=== PATIENT | female | born 1955 | race Caucasian/White ===

== ENCOUNTER 2018-05-30 16:46 | Inpatient (IN) | payer OTHER, SELFPAY ==
[2018-05-30 16:47] VITALS: BP 125/76; PULSE 99; RESP 16; TEMP 36.8; O2SAT 93; BMI 31.6
[2018-05-30] MEDS: 0.9% Normal Saline 1,000 ML 1000 ML IV (17:30)
[2018-05-30] MEDS: Ondansetron 4 MG/2 ML Vial IV (17:30)
--- NOTE | 2018-05-30 17:55 | ED.DCSUM_ITS ---
- ER Visit Summary Date of Service: 05/30/18 Chief Complaint: Abdominal pain, nausea, and diarrhea. 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 She reports that 4 days ago she became very nauseated and vomited approximately 5 times. No blood or emesis. She has not vomited since then. However, she remains nauseated. She reports that she is having diarrhea once in a while. Last was approximate 11:00 today. There is been no blood in her stools or black tarry stools. She reports that she has left-sided abdominal pain began 3 days ago. Some intermittent pain last seconds at a time and she describes this as sharp. Is 10 out of 10 at worst and she is pain-free currently. Is worsened by nothing and relieved by nothing. Patient complains of frequent urination, but no dysuria. States she has had vaginal discharge for the past 1-1/2 years that is worsened over the past 2 days. Is light brown in color and is malodorous. She has vaginal bleeding with wiping sometimes. Patient is status post appendectomy, cholecystectomy, and hysterectomy. Physical Examination: Vitals: Stable. Afebrile. General: Well-nourished and well-developed. Head: Normocephalic atraumatic. Neck: Supple, no lymphadenopathy. No JVD. Nontender. Cardiovascular: Regular rate and rhythm. No murmurs. Respiratory: No respiratory distress. Clear to auscultation bilaterally. Abdominal: Soft, moderate left upper quadrant tenderness and mild left lower quadrant and suprapubic tenderness to palpation, nondistended, normal bowel sounds. No guarding, rebound, or peritoneal signs. Pelvic: Refused. Back: Nontender. Extremities: Nontender, no edema. Skin: Normal color, no rash. Neurologic: Alert and oriented ?3. Cranial nerves II through XII are intact. Normal strength and sensation. Psych: Normal affect. Test Results: CBC is remarkable for monocytes of 11. Chem-7 is more for potassium 3.3 and BUN of 20. LFTs marked for globulin 4.4. Lipase is normal. UA shows blood, greater than 100 white blood cells, 25-50 red blood cells, and 3 + bacteria. Clinical Impression(s) from Imaging Studies Abdomen/Pelvis CT 05/30/18 17:11 IMPRESSION: Inflammatory process in the pelvis that appears to be related to the rectosigmoid and may be associated with 2 small abscesses on the right. See specifics above. Electronically Signed: Javed Chavez MD at 19:39 EDT , Service support , Emergency Department Course and Treatment: Patient refused pain medications. She was treated with Zofran IV and is resting comfortably. The patient's urine returned she was given a dose of Rocephin IV. After discussion with Dr. Hamilton she was given Flagyl and Cipro IV. Treatment Plan: Patient was discussed with Dr. Steve Dodd. She will be admitted to the hospital for IV antibiotics and further evaluation. Disposition: Admitted in stable condition. Impression: 1. Small bowel obstruction. 2. Pelvic abscesses. 3. Rectosigmoid wall thickening. This note was generated with [employer] dictation software. It may contain incorrect words, spelling, and punctuation that were not noted in review of the chart prior to signing ED Disposition - Plan for ED Patient: Disposition: Acute Care [facility] Chief Complaint: Abd Pain
[2018-05-30 18:05] LABS: Absolute Lymphocyte Count 2.17 X10^3/ul (0.83-4.51); Absolute Neutrophil Count 4.2 X10^3/uL (2.0-7.7); Basophil# 0.02 X10^3/uL; Basophil% 0.3 % (0-1); Eosinophil# 0.05 X10^3/uL; Eosinophils% 0.7 % (0-5); Hematocrit 38.9 % (37-47); Hemoglobin 12.4 g/dl (12.0-15.0); Lymphocyte # 2.17 X10^3/ul (4.0); Lymphocyte % 29.8 % (19-41); Mean Corp Hgb Conc 31.9 g/gl (32-36); Mean Corpuscular Hgb 30.2 pg (27.0-32.0); Mean Corpuscular Volume 94.9 fL (81-99); Mean Platelet Vol. 11.4 fl (6.2-12.0); Monocyte# 0.82 X10^3/uL; Monocyte% 11.3 % (0-10); Neutrophil # 4.21 X10^3/uL (2.7-7.7); Neutrophil % 57.9 % (47-70); Platelet Count 307 K/mm3 (150-450); RBC Distribution Width CV 13.6 % (11.6-14.6); White Blood Count 7.3 K/mm3 (4.4-11.0)
[2018-05-30 18:08] LABS: POSITIVE COUNT NO; POSITIVE DIFFERENTIAL NO; POSITIVE MORPHOLOGY NO
[2018-05-30 18:09] LABS: Mucous, Urine 0 SEEN /hpf (<or=2+)
[2018-05-30 18:23] LABS: AST(SGOT) 19 U/L (15-37); Alanine Aminotransfer ALT/SGPT 15 U/L (13-56); Albumin, Serum 3.3 g/dL (3.2-5.0); Alkaline Phosphatase 91 U/L (45-117); Anion Gap 9 (5-15); BUN 20 mg/dL (7-18); BUN/Creat Ratio 26.9 RATIO (10-20); Bilirubin, Direct 0.14 mg/dL (0.00-0.30); Calcium,Total 9.1 mg/dL (8.5-10.1); Chloride 103 mmol/L (98-107); Creatinine, Serum 0.74 mg/dL (0.55-1.02); EST Glomerular Filtration Rate 84 mL/min (>60); Est Glom Filt Rate - Afr Amer 102 mL/min (>60); Estimated Creatinine Clearance 75.68 ml/min; Globulin 4.4 g/dL (2.2-4.2); Glucose 100 mg/dL (74-106); Lipase 48 U/L (73-393); Potassium 3.3 mmol/L (3.5-5.1); Protein, Total 7.7 g/dL (6.4-8.2); Sodium Level 139 mmol/L (136-145)
[2018-05-30 18:24] LABS: Color, Urine Straw (Yellow); Glucose, Dipstick Normal (Normal); Ketone-Dipstick 15 mg/dl (Negative); Leukocyte Esterase-Dipstick 500 /ul (Negative); Nitrite-Dipstick Negative (Negative); Occult Blood-Urine 250 /ul (Negative); Protein-Dipstick 30 mg/dl (Negative); Specific Gravity, Urine 1.005 (1.002-1.030); Urine Bilirubin Dipstick Negative (Negative); Urine Clarity Cloudy (Clear); Urine Urobilinogen Normal (Normal); Urine pH 6.5 (5.0 - 8.0)
[2018-05-30 18:35] LABS: Bacteria 3+ /hpf (None Seen); Red Blood Cells-Urine 25-50 SEEN /hpf (0-5); Squamous Epithelial Cells - UA 0-5 SEEN /hpf (5-10); White Blood Cells >100 SEEN /hpf (0-5)
[2018-05-30] MEDS: Ceftriaxone 1 GM/50 ML BAG IV (19:34)
[2018-05-30 19:37] VITALS: BP 139/79; PULSE 85; RESP 17; O2SAT 95
[2018-05-30] MEDS: Ciprofloxacin 400 MG/200 ML BAG 200 MG IV (20:49)
--- NOTE | 2018-05-30 20:58 | PCM.HP.STD ---
Problem List (1) SBO (small bowel obstruction) Status: Acute (2) Abdominal pain Status: Acute Qualifiers: Abdominal location: generalized Qualified Code(s): R10.84 - Generalized abdominal pain (3) Pelvic abscess Status: Acute History of Present Illness Date of Admission: 05/30/18 Chief Complaint: abdominal pain The patient is a 62 year old female patient with no primary care in the past 15 years presents to the ER with abdominal pain. The pain has been present and getting worse since Wednesday. She has little or no appetite but does not like to seek medical care. The pain is now significant enough for her her to come in. She has nausea as well. The patient complaints of chronic vaginal discharge and consents to having a director of assessment consult but is refusing pelvic exam in the ER. CT scan reveals an inflammatory response in the abdomen and two distinct abscesses along with ileus and small bowel obstruction. The patient is a smoker but does not want a NicoDerm patch . She will be admitted for further workup. Past Medical History Allergies Penicillins Allergy (Verified 05/30/18 16:49) BLISTERS IN MOUTH Home Medications: Ambulatory Orders Medication Instructions Recorded Ibuprofen 400 - 600 mg PO PRN PRN 05/30/18 Smoking Status: Current every day smoker - *Family History Maternal History Items: No pertinent history Review of Systems Constitutional: Denies: Chills, Fever, Weight Change HEENT: Denies: Head Aches, Sinus Congestion, Sinus Drainage Cardiovascular: Denies: Chest Pain, Palpitations Respiratory: Denies: Cough, Shortness of breath at rest, Sputum production Gastrointestinal: Reports: Abdominal Pain, Nausea. Denies: Vomiting Genitourinary: Denies: Dysuria Gynecological: Reports: Vaginal discharge Musculoskeletal: Denies: Joint Pain, Joint Tenderness Skin: Denies: Rash, Wounds Neurological: Denies: Numbness, Tingling, Focal weakness Psychiatric: Denies: Anxiety, Depression, Homicidal Ideations, Suicidal Ideations Hematologic/ Lymphatic: Denies: Easy Bruising, Easy Bleeding VTE Information - Inpt Only VTE Present on Admission: No VTE Mechan Device Prophylaxis: None VTE Pharm Prophylaxis ordered?: Yes Patient Problems: Active and Suspected Problems SBO (small bowel obstruction) (Acute) Abdominal pain (Acute) Pelvic abscess (Acute) - Physical Exam General: Alert, Oriented x3, Cooperative HEENT: Atraumatic, Normocephalic Neck: Supple Lungs: Clear to auscultation, Normal air movement, No rhonchi, No wheeze, No rales Cardiovascular: Regular rate, Regular Rhythm, Normal S1, Normal S2, No murmurs Abdomen: Soft, Hypoactive Bowel Sounds, Tender Extremities: No edema, Capillary Refill Less than 3 Seconds Skin: No rashes Musculoskeletal: No Tenderness to Palpation of Joints or Extremities Neurological: Neuro grossly intact Psych/Mental Status: Normal Affect, Appropriate Vital Signs Temp Pulse Resp BP Pulse Ox 98.2 F 85 17 139/79 H 95 05/30/18 16:47 05/30/18 19:37 05/30/18 19:37 05/30/18 19:37 05/30/18 19:37 Oxygen Delivery Method Room Air Weight: 196 lb 3.382 oz Body Mass Index (BMI) 31.6 Laboratory Tests Past 24 Hrs 05/30/18 05/30/18 05/30/18 17:25 17:25 17:55 WBC 7.3 RBC 4.10 L Hgb 12.4 Hct 38.9 MCV 94.9 MCH 30.2 MCHC 31.9 L RDW 13.6 RDW Differential 47.0 H Plt Count 307 MPV 11.4 Immature Gran % (Auto) 0.000 Neut % (Auto) 57.9 Lymph % (Auto) 29.8 [place] % (Auto) 11.3 H Eos % (Auto) 0.7 Baso % (Auto) 0.3 Absolute Neuts (auto) 4.2 Absolute Lymphs (auto) 2.17 Total Counted Not Reportable Sodium 139 Potassium 3.3 L Chloride 103 Carbon Dioxide 27.0 Anion Gap 9 BUN 20 H Creatinine 0.74 Estim Creat Clear Calc 75.68 Est GFR (MDRD) Af Amer 102 Est GFR (MDRD) Non-Af 84 BUN/Creatinine Ratio 26.9 H Glucose 100 Calcium 9.1 Total Bilirubin 0.40 Direct Bilirubin 0.14 AST 19 ALT 15 Alkaline Phosphatase 91 Total Protein 7.7 Albumin 3.3 Globulin 4.4 H Lipase 48 L Urine Color Straw Urine Clarity Cloudy Urine pH 6.5 Ur Specific [place] 1.005 Urine Protein 30 H Urine Glucose (UA) Normal Urine Ketones 15 H Urine Occult Blood 250 H Urine Nitrite Negative Urine Bilirubin Negative Urine Urobilinogen Normal Ur Leukocyte Esterase 500 H Urine RBC 25-50 SEEN Urine WBC >100 SEEN Ur Squamous Epith Cells 0-5 SEEN Urine Bacteria 3+ Urine Mucus 0 SEEN Assessment/Plan All Active Problems SBO (small bowel obstruction) (Acute) Abdominal pain (Acute) Pelvic abscess (Acute) Plan - admit to general medical floor - consult Dr Hamilton for general surgery management of SBO - consult Dr Lim for management of vaginal discharge and does this related to current inflammatory process - CBC, BMP in am - continue ciprofloxacin and flagyl - morphine 2-4mg IV q 2hrs prn - zofran 4mg IV q6hrs prn - NPO and continue D5 1/2NS with 20meq KCl at 100cc/hr Code Visit Inpatient E&M: 86116 Init Hosp L3
[2018-05-30 22:09] VITALS: RESP 16; O2SAT 98
[2018-05-30 22:50] VITALS: BP 135/76; PULSE 83; RESP 16; TEMP 36.8; O2SAT 95
[2018-05-30 22:51] VITALS: BMI 31.9
[2018-05-30 22:54] VITALS: BMI 32.0
[2018-05-31 05:08] VITALS: BP 128/64; PULSE 82; RESP 16; TEMP 37; O2SAT 93
[2018-05-31 07:05] LABS: Absolute Lymphocyte Count 2.02 X10^3/ul (0.83-4.51); Absolute Neutrophil Count 4.1 X10^3/uL (2.0-7.7); Basophil# 0.01 X10^3/uL; Basophil% 0.1 % (0-1); Eosinophil# 0.08 X10^3/uL; Eosinophils% 1.1 % (0-5); Hematocrit 34.4 % (37-47); Lymphocyte # 2.02 X10^3/ul (4.0); Lymphocyte % 28.1 % (19-41); Mean Corpuscular Hgb 30.4 pg (27.0-32.0); Mean Platelet Vol. 10.8 fl (6.2-12.0); Monocyte# 0.96 X10^3/uL; Monocyte% 13.4 % (0-10); Neutrophil % 57.2 % (47-70); Platelet Count 263 K/mm3 (150-450); RBC Distribution Width CV 13.5 % (11.6-14.6); RBC Distribution Width SD 46.9 fl (35.1-43.9); Red Blood Count 3.62 M/mm3 (4.2-5.4); White Blood Count 7.2 K/mm3 (4.4-11.0)
[2018-05-31 07:07] LABS: POSITIVE COUNT NO; POSITIVE DIFFERENTIAL NO; POSITIVE MORPHOLOGY NO
[2018-05-31 07:36] LABS: Anion Gap 10 (5-15); BUN 12 mg/dL (7-18); BUN/Creat Ratio 21.2 RATIO (10-20); Calcium,Total 8.2 mg/dL (8.5-10.1); Chloride 108 mmol/L (98-107); Creatinine, Serum 0.57 mg/dL (0.55-1.02); EST Glomerular Filtration Rate 116 mL/min (>60); Est Glom Filt Rate - Afr Amer 140 mL/min (>60); Estimated Creatinine Clearance 98.26 ml/min; Glucose 99 mg/dL (74-106); Potassium 3.3 mmol/L (3.5-5.1); Sodium Level 144 mmol/L (136-145)
--- NOTE | 2018-05-31 07:41 | PCM.CONS.GEN ---
Reason for Consult Date of Consultation: 05/31/18 Reason for Consultation: Small bowel obstruction versus ileus History of Present Illness: The patient is a 62 year old F presented to the ER due to lower abdominal pain last night. Patient states that this often began on when she had some vomiting night and then she has had nausea since then. She states she has not 8 food since Wednesday but has been able to drink water. On Wednesday she started having lower abdominal pain which would come and go only last for seconds she rated rated the pain a 10/10 she also would have diarrhea almost nightly with this. Currently she states the pain still comes and goes but is even shorter in time and is only a 7/10. Patient states she did have diarrhea last night which was green in color previously was brown she also had flatus. Patient states that in April she had the vomiting and diarrhea for about 2 weeks no recent travel history or any sick contacts. Patient also complains of vaginal discharge for greater than a year she describes as malodorous light brown currently states that the green. Patient denies ever having a colonoscopy or any previous history of diverticulitis that she is aware of she denies any fevers or chills. Patient has had multiple previous surgeries hysterectomy and appendectomy about 24 years ago then laparoscopic cholecystectomy, wisdom teeth, left foot surgery. Past Medical History Allergies Penicillins Allergy (Verified 05/30/18 16:49) BLISTERS IN MOUTH Home Medications: Ambulatory Orders Medication Instructions Recorded Ibuprofen 400 - 600 mg PO PRN PRN 05/30/18 Surgical History: appendectomy, cholecystectomy, hysterectomy, - - [place] teeth, left foot surgery Psychiatric History: No pertinent psych hx [employer]ER History: - - Patient had a hysterectomy 24 years ago reports vaginal discharge for greater than a year Lives: Spouse/ Significant Other Smoking Status: Current every day smoker - *Family History Maternal History Items: No pertinent history Review of Systems Constitutional: Reports: Anorexia. Denies: Chills, Fever Eyes: Denies: Blurred vision HEENT: Denies: Difficulty Swallowing Cardiovascular: Denies: Chest Pain Respiratory: Denies: Shortness of breath at rest Gastrointestinal: Reports: Abdominal Pain, Diarrhea, Nausea. Denies: Vomiting Skin: Denies: Rash Patient Problems: Active and Suspected Problems SBO (small bowel obstruction) (Acute) Abdominal pain (Acute) Pelvic abscess (Acute) - Physical Exam General: Alert, Oriented x3, Cooperative, No apparent distress HEENT: Atraumatic, Normocephalic Lungs: Normal air movement Cardiovascular: Regular rate Abdomen: Soft, Non-Distended, Tender - Mild diffusely in greater in the lower abdomen bilaterally, no rebound or peritoneal signs Extremities: No clubbing, No cyanosis, No edema Skin: No rashes Neurological: Cranial nerves II-XII grossly intact Psych/Mental Status: Normal Affect Vital Signs Temp Pulse Resp BP Pulse Ox 98.6 F 82 16 128/64 H 93 05/31/18 05:08 05/31/18 05:08 05/31/18 05:08 05/31/18 05:08 05/31/18 05:08 Oxygen Delivery Method Room Air Weight: 198 lb 3.129 oz Body Mass Index (BMI) 31.9 Intake and Output for Last 24 Hours 05/29/18 05/30/18 05/31/18 23:59 23:59 23:59 Intake Total 934 / 934 Balance 934 / 934 Laboratory Tests Past 24 Hrs 05/31/18 05/31/18 06:45 06:45 WBC 7.2 RBC 3.62 L Hgb 11.0 L Hct 34.4 L MCV 95.0 MCH 30.4 MCHC 32.0 RDW 13.5 RDW Differential 46.9 H Plt Count 263 MPV 10.8 Immature Gran % (Auto) 0.100 Neut % (Auto) 57.2 Lymph % (Auto) 28.1 [place] % (Auto) 13.4 H Eos % (Auto) 1.1 Baso % (Auto) 0.1 Absolute Neuts (auto) 4.1 Absolute Lymphs (auto) 2.02 Total Counted Not Reportable Sodium 144 Potassium 3.3 L Chloride 108 H Carbon Dioxide 26.0 Anion Gap 10 BUN 12 Creatinine 0.57 Estim Creat Clear Calc 98.26 Est GFR (MDRD) Af Amer 140 Est GFR (MDRD) Non-Af 116 BUN/Creatinine Ratio 21.2 H Glucose 99 Calcium 8.2 L Assessment/Plan All Active Problems SBO (small bowel obstruction) (Acute) Abdominal pain (Acute) Pelvic abscess (Acute) 62-year-old female with ileus, UTI, diarrhea, vaginal discharge questionable fistula, pelvic abscess on CT 1. Ileus: Patient is passing gas and having diarrhea this is not consistent with small bowel obstruction may be due to an ileus. Her urine was positive for UTI await culture. Will also check stool studies. Continue n.p.o. and IV antibiotics 2. vaginal discharge--C[employer] MILLER has been consulted. Patient's pantiliner discharge could be consistent with fistula. Plan to review the CT with our radiologist. 3. Pelvic abscesses-will reviewed the CT with the radiologist these possible abscesses do not appear to be next to the colon either the cecum or the sigmoid on my read and also do not see any obvious diverticulitis of the colon. ADDENDUM: CT pelvis with Gastrografin was done, which shows some thickening of the rectal sigmoid colon, previous abscesses with air-fluid level seen in another larger abscess called on report---I believe this is actually small bowel not an abscess in the anterior pelvis on top of the bladder. Patient does have stool like drainage from her vaginal cuff on her panty liner. And her urinary culture does show mixed gram-positive and negative organisms still pending, CT also shows a thickened bladder wall. 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 Sloan. Becca Hamilton M.D. Pager: [phone] [facility] [address] [place] [address], [address] [place] [address] Office: [phone]
[2018-05-31 08:15] VITALS: BP 139/79; PULSE 82; RESP 16; TEMP 37; O2SAT 95
[2018-05-31] MEDS: Ciprofloxacin 400 MG/200 ML BAG 200 MG IV ×2 (09:45→22:08)
[2018-05-31] MEDS: 0.9% NaCl Peripheral Flush Adult/Peds IV ×2 (09:45→20:51)
--- NOTE | 2018-05-31 12:02 | PCM.PN.HOSP ---
Patient Problems: Active and Suspected Problems SBO (small bowel obstruction) (Acute) Abdominal pain (Acute) Pelvic abscess (Acute) Subjective: Patient seen and examined. She was sitting comfortably in her chair and had no complaints. She denied any fever or chills, any cough or chest pain, any shortness of breath, any diarrhea or vomiting. She did admit to having a profuse offensive greenish vaginal discharge has been going on for quite a long time. She states discharge started out initially brownish but had become yellowish. She still had the lower abdominal pain which had brought her in initially. Review of systems is otherwise negative. Surgery and gynecology have been consulted. Vitals reviewed. Vitals/I&O's: Vital Signs Temp Pulse Resp BP Pulse Ox 98.6 F 82 16 139/79 H 95 05/31/18 08:15 05/31/18 08:15 05/31/18 08:15 05/31/18 08:15 05/31/18 08:15 Oxygen Delivery Method Room Air Weight: 198 lb 3.129 oz Body Mass Index (BMI) 31.9 Intake and Output for Last 24 Hours 05/29/18 05/30/18 05/31/18 23:59 23:59 23:59 Intake Total 934 / 934 Balance 934 / 934 General: Alert, Oriented x3, Cooperative, No apparent distress HEENT: Atraumatic, PERRLA, EOMI, Normocephalic Oral: Moist Mucosa Neck: Supple, No JVD, Negative Carotid Bruits Lungs: Clear to auscultation, Normal air movement Cardiovascular: Regular rate, Regular Rhythm, Normal S1, Normal S2, No murmurs Abdomen: Bowel Sounds Present, Soft, Non-Distended, No Hepato-splenomegaly, - - mild suprapubic tenderness Extremities: No clubbing, No cyanosis, No edema, Capillary Refill Less than 3 Seconds Skin: No rashes, No breakdown Musculoskeletal: No Tenderness to Palpation of Joints or Extremities, No Muscle Wasting Lymphatic: No Cervical, Supraclavicular, or Inguinal Adenopathy Neurological: Cranial nerves II-XII grossly intact Psych/Mental Status: Normal Affect, Appropriate, Alert and oriented to time, place, person, mood and affect Laboratory Results 05/31/18 06:45: Sodium 144, Potassium 3.3 L, Chloride 108 H, Carbon Dioxide 26.0, Anion Gap 10, BUN 12, Creatinine 0.57, Estim Creat Clear Calc 98.26, Est GFR (MDRD) Af Amer 140, Est GFR (MDRD) Non-Af 116, BUN/Creatinine Ratio 21.2 H, Glucose 99, Calcium 8.2 L 05/31/18 06:45: WBC 7.2, RBC 3.62 L, Hgb 11.0 L, Hct 34.4 L, MCV 95.0, MCH 30.4, MCHC 32.0, RDW 13.5, RDW Differential 46.9 H, Plt Count 263, MPV 10.8, Immature Gran % (Auto) 0.100, Neut % (Auto) 57.2, Lymph % (Auto) 28.1, [place] % (Auto) 13.4 H, Eos % (Auto) 1.1, Baso % (Auto) 0.1, Absolute Neuts (auto) 4.1, Absolute Lymphs (auto) 2.02, Total Counted Not Reportable Current Medications Enoxaparin Sodium (Lovenox) 40 mg SC DAILY@1000 KVNG Ciprofloxacin (Cipro) 400 mg in 200 mls @ 200 mls/hr IV Q12 [facility] Last Admin: 05/31/18 09:45 Dose: 200 mls/hr Potassium Chloride/Dextrose/Sod Cl (Kcl 20meq In D5.45ns 1000ml) 1,000 mls @ 100 mls/hr IV .Q10H [facility] Last Admin: 05/30/18 23:14 Dose: 100 mls/hr Metronidazole (Flagyl) 500 mg in 100 mls @ 100 mls/hr IV Q8 [facility] Last Admin: 05/31/18 05:11 Dose: 100 mls/hr Sodium Chloride () 250 mls @ 15 mls/hr IV .[id number] PRN PRN Reason: SALINE FLUSH Magnesium Hydroxide (Milk Of Magnesia) 30 ml PO DAILY PRN PRN PRN Reason: Constipation Morphine Sulfate () 2 mg IV Q2H PRN PRN PRN Reason: SEVERE PAIN (6-10/10) Ondansetron HCl (Zofran) 4 mg IV Q6H PRN PRN PRN Reason: NAUSEA Sodium Chloride () 5 - 30 ml IV UD PRN PRN Reason: SALINE FLUSH Last Admin: 08/28/18 09:45 Dose: 10 ml Medical Necessity - Tobacco Use Smoking Status: Current every day smoker Assessment/Plan All Active Problems SBO (small bowel obstruction) (Acute) Abdominal pain (Acute) Pelvic abscess (Acute) 1. Pelvic abscess presented with lower abdominal pain and greenish vaginal discharge. says pain is still present but is better has been having vaginal discharge for years, according to her CT abdomen showed: inflammatory process in pelvis that appears to be related to rectosigmoid. 2 small 2.3cm and 3.4cm abscesses on the right.multiple fluid filled distended loops of small tavo consistent with severe ileus or even obstruction had CT pelvis with gastrograffin today which showed inflammatory changes involving the rectosigmoid colon with increased markings in the surrounding peritoneal fat and small lymph nodes. Findings suggestive of at least 2 fluid collections containing a suggestive of abscesses. Irregular thickening of urinary bladder and air seen within the vagina. 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 Patient will therefore need to be transferred to a tertiary center. on IV ciprofloxacin and IV flagyl IV morphine for pain and IV zofran prn continue IVF 2. Intestinal ileus There was concern for small bowel obstruction based on CT scan findings. However this is more likely to to be ileus which is resolved as patient is passing gas and had a good bowel movement this morning. Continue n.p.o. General surgery on board. On IV fluids 3. Hypokalemia: K is 3.3 today. Will replace and monitor DVT prophylaxis: SCDs This note was generated with [employer] dictation software. It may contain incorrect words, spelling, and punctuation that were not noted in checking the note before signing. Code Visit Inpatient E&M: 67806 [facility] H[facility] L3
--- NOTE | 2018-05-31 12:06 | PN_ITS ---
Patient Problems: Active and Suspected Problems SBO (small bowel obstruction) (Acute) Abdominal pain (Acute) Pelvic abscess (Acute) Subjective: Patient seen and examined. She was sitting comfortably in her chair and had no complaints. She denied any fever or chills, any cough or chest pain, any shortness of breath, any diarrhea or vomiting. She did admit to having a profuse offensive greenish vaginal discharge has been going on for quite a long time. She states discharge started out initially brownish but had become yellowish. She still had the lower abdominal pain which had brought her in initially. Review of systems is otherwise negative. Surgery and gynecology have been consulted. Vitals reviewed. Vitals/I&O's: Vital Signs Temp Pulse Resp BP Pulse Ox 98.6 F 82 16 139/79 H 95 05/31/18 08:15 05/31/18 08:15 05/31/18 08:15 05/31/18 08:15 05/31/18 08:15 Oxygen Delivery Method Room Air Weight: 198 lb 3.129 oz Body Mass Index (BMI) 31.9 Intake and Output for Last 24 Hours 05/29/18 05/30/18 05/31/18 23:59 23:59 23:59 Intake Total 934 / 934 Balance 934 / 934 General: Alert, Oriented x3, Cooperative, No apparent distress HEENT: Atraumatic, PERRLA, EOMI, Normocephalic Oral: Moist Mucosa Neck: Supple, No JVD, Negative Carotid Bruits Lungs: Clear to auscultation, Normal air movement Cardiovascular: Regular rate, Regular Rhythm, Normal S1, Normal S2, No murmurs Abdomen: Bowel Sounds Present, Soft, Non-Distended, No Hepato-splenomegaly, - - mild suprapubic tenderness Extremities: No clubbing, No cyanosis, No edema, Capillary Refill Less than 3 Seconds Skin: No rashes, No breakdown Musculoskeletal: No Tenderness to Palpation of Joints or Extremities, No Muscle Wasting Lymphatic: No Cervical, Supraclavicular, or Inguinal Adenopathy Neurological: Cranial nerves II-XII grossly intact Psych/Mental Status: Normal Affect, Appropriate, Alert and oriented to time, place, person, mood and affect Laboratory Results 05/31/18 06:45: Sodium 144, Potassium 3.3 L, Chloride 108 H, Carbon Dioxide 26.0 , Anion Gap 10, BUN 12, Creatinine 0.57, Estim Creat Clear Calc 98.26, Est GFR ( MDRD) Af Amer 140, Est GFR (MDRD) Non-Af 116, BUN/Creatinine Ratio 21.2 H, Glucose 99, Calcium 8.2 L 05/31/18 06:45: WBC 7.2, RBC 3.62 L, Hgb 11.0 L, Hct 34.4 L, MCV 95.0, MCH 30.4 , MCHC 32.0, RDW 13.5, RDW Differential 46.9 H, Plt Count 263, MPV 10.8, Immature Gran % (Auto) 0.100, Neut % (Auto) 57.2, Lymph % (Auto) 28.1, [place] % ( Auto) 13.4 H, Eos % (Auto) 1.1, Baso % (Auto) 0.1, Absolute Neuts (auto) 4.1, Absolute Lymphs (auto) 2.02, Total Counted Not Reportable Current Medications Enoxaparin Sodium (Lovenox) 40 mg SC DAILY@1000 KVNG Ciprofloxacin (Cipro) 400 mg in 200 mls @ 200 mls/hr IV Q12 [facility] Last Admin: 05/31/18 09:45 Dose: 200 mls/hr Potassium Chloride/Dextrose/Sod Cl (Kcl 20meq In D5.45ns 1000ml) 1,000 mls @ 100 mls/hr IV .Q10H [facility] Last Admin: 05/30/18 23:14 Dose: 100 mls/hr Metronidazole (Flagyl) 500 mg in 100 mls @ 100 mls/hr IV Q8 [facility] Last Admin: 05/31/18 05:11 Dose: 100 mls/hr Sodium Chloride () 250 mls @ 15 mls/hr IV .[id number] PRN PRN Reason: SALINE FLUSH Magnesium Hydroxide (Milk Of Magnesia) 30 ml PO DAILY PRN PRN PRN Reason: Constipation Morphine Sulfate () 2 mg IV Q2H PRN PRN PRN Reason: SEVERE PAIN (6-10/10) Ondansetron HCl (Zofran) 4 mg IV Q6H PRN PRN PRN Reason: NAUSEA Sodium Chloride () 5 - 30 ml IV UD PRN PRN Reason: SALINE FLUSH Last Admin: 08/28/18 09:45 Dose: 10 ml Medical Necessity - Tobacco Use Smoking Status: Current every day smoker Assessment/Plan All Active Problems SBO (small bowel obstruction) (Acute) Abdominal pain (Acute) Pelvic abscess (Acute) 1. Pelvic abscess * presented with lower abdominal pain and greenish vaginal discharge. * says pain is still present but is better * has been having vaginal discharge for years, according to her * CT abdomen showed: inflammatory process in pelvis that appears to be related to rectosigmoid. 2 small 2.3cm and 3.4cm abscesses on the right.multiple fluid filled distended loops of small tavo consistent with severe ileus or even obstruction * had CT pelvis with gastrograffin today which showed inflammatory changes involving the rectosigmoid colon with increased markings in the surrounding peritoneal fat and small lymph nodes. Findings suggestive of at least 2 fluid collections containing a suggestive of abscesses. Irregular thickening of urinary bladder and air seen within the vagina. 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 Patient will therefore need to be transferred to a tertiary center. * on IV ciprofloxacin and IV flagyl * IV morphine for pain and IV zofran prn * continue IVF * 2. Intestinal ileus * There was concern for small bowel obstruction based on CT scan findings. However this is more likely to to be ileus which is resolved as patient is passing gas and had a good bowel movement this morning. * Continue n.p.o. General surgery on board. * On IV fluids 3. Hypokalemia: K is 3.3 today. Will replace and monitor DVT prophylaxis: SCDs This note was generated with [employer] dictation software. It may contain incorrect words, spelling, and punctuation that were not noted in checking the note before signing. Code Visit Inpatient E&M: 33766 [facility] Hosp L3
--- NOTE | 2018-05-31 12:12 | CASEMGMT ---
RN MARIO Face to Face with patient for initial transition planning/care coordination assessment. RN CM introduced self and role at [facility]. Patient sitting in chair, alert and oriented. Patient willing to participate in assessment and is able to answer all questions appropriately. Care providers, pharmacy, and demographics verified. See link attached. Patient wishes to discharge home, denies need for home health at this time. CM to follow for discharge planning needs that may arise. Disposition Plan: Patient to discharge home with family support and follow-up plans in place. Mayra GONZALEZ, RN, CM
--- NOTE | 2018-05-31 14:46 | CASEMGMT ---
Insurance review for [facility] facilities using [facility] choice plus designation from insurance card. [facility], [facility], [facility], [facility] -Call to [facility] insurance to verify with Emily BHATIA main campus is [facility] though it did not show on their website. Tahir RAMIREZN RN ACM
[2018-05-31 14:50] VITALS: BP 138/77; PULSE 91; RESP 16; TEMP 37; O2SAT 96
[2018-05-31 19:36] VITALS: BP 130/65; PULSE 74; RESP 18; TEMP 36.8; O2SAT 97
[2018-06-01 03:29] VITALS: BP 127/59; PULSE 77; RESP 18; TEMP 37; O2SAT 94
[2018-06-01 06:54] LABS: Absolute Lymphocyte Count 2.62 X10^3/ul (0.83-4.51); Absolute Neutrophil Count 2.8 X10^3/uL (2.0-7.7); Basophil# 0.04 X10^3/uL; Basophil% 0.6 % (0-1); Eosinophil# 0.14 X10^3/uL; Eosinophils% 2.1 % (0-5); Hematocrit 33.6 % (37-47); Hemoglobin 10.7 g/dl (12.0-15.0); Lymphocyte # 2.62 X10^3/ul (4.0); Lymphocyte % 40.2 % (19-41); Mean Corp Hgb Conc 31.8 g/gl (32-36); Mean Corpuscular Hgb 30.3 pg (27.0-32.0); Mean Corpuscular Volume 95.2 fL (81-99); Mean Platelet Vol. 11.1 fl (6.2-12.0); Monocyte# 0.87 X10^3/uL; Monocyte% 13.3 % (0-10); Neutrophil # 2.84 X10^3/uL (2.7-7.7); Neutrophil % 43.6 % (47-70); Platelet Count 278 K/mm3 (150-450); RBC Distribution Width CV 13.6 % (11.6-14.6); RBC Distribution Width SD 46.9 fl (35.1-43.9); Red Blood Count 3.53 M/mm3 (4.2-5.4); White Blood Count 6.5 K/mm3 (4.4-11.0)
[2018-06-01 06:57] LABS: POSITIVE COUNT NO; POSITIVE DIFFERENTIAL NO; POSITIVE MORPHOLOGY NO
[2018-06-01 06:59] LABS: Anion Gap 8 (5-15); BUN 7 mg/dL (7-18); BUN/Creat Ratio 12.5 RATIO (10-20); Calcium,Total 8.1 mg/dL (8.5-10.1); Chloride 111 mmol/L (98-107); Creatinine, Serum 0.56 mg/dL (0.55-1.02); EST Glomerular Filtration Rate 117 mL/min (>60); Est Glom Filt Rate - Afr Amer 142 mL/min (>60); Estimated Creatinine Clearance 100.01 ml/min; Glucose 98 mg/dL (74-106); Potassium 3.6 mmol/L (3.5-5.1); Sodium Level 144 mmol/L (136-145)
--- NOTE | 2018-06-01 08:08 | NURSING ---
Addendum entered by Chiara Persaud 06/01/18 08:53: Dr. Sloan called back and dr. amaral called- both stating that patient will start on clear liquid diet at this time and advance to low gastric stimulus diet. Original Note: Dr. Sloan out to nurses' station and ordered patient npo status to be d/c'ed and pt to have regular diet
--- NOTE | 2018-06-01 08:37 | PCM.PN.SRG ---
Patient Problems: Active and Suspected Problems SBO (small bowel obstruction) (Acute) Abdominal pain (Acute) Pelvic abscess (Acute) Subjective: Pt states abd pain improved only mild soreness on palp, decreased diarrhea/vaginal discharge per pt - Physical Exam General: Alert, Oriented x3, Cooperative, No apparent distress Abdomen: Soft, Non Tender - no PS, Non-Distended Vital Signs Temp Pulse Resp BP Pulse Ox 98.6 F 77 18 127/59 H 94 06/01/18 03:29 06/01/18 03:29 06/01/18 03:29 06/01/18 03:29 06/01/18 03:29 Oxygen Delivery Method Room Air Weight: 198 lb 3.129 oz Body Mass Index (BMI) 31.9 Intake and Output for Last 24 Hours 05/30/18 05/31/18 06/01/18 23:59 23:59 23:59 Intake Total 2310 / 2310 1075 / 1075 Output Total 225 / 225 Balance 2085 / 2085 1075 / 1075 Microbiology Past 72 Hours 05/31/18 16:25 Stool Lactoferrin - Final Stool Laboratory Tests Past 24 Hrs 06/01/18 06/01/18 06:18 06:18 WBC 6.5 RBC 3.53 L Hgb 10.7 L Hct 33.6 L MCV 95.2 MCH 30.3 MCHC 31.8 L RDW 13.6 RDW Differential 46.9 H Plt Count 278 MPV 11.1 Immature Gran % (Auto) 0.200 Neut % (Auto) 43.6 L Lymph % (Auto) 40.2 [place] % (Auto) 13.3 H Eos % (Auto) 2.1 Baso % (Auto) 0.6 Absolute Neuts (auto) 2.8 Absolute Lymphs (auto) 2.62 Total Counted Not Reportable Sodium 144 Potassium 3.6 Chloride 111 H Carbon Dioxide 25.0 Anion Gap 8 BUN 7 Creatinine 0.56 Estim Creat Clear Calc 100.01 Est GFR (MDRD) Af Amer 142 Est GFR (MDRD) Non-Af 117 BUN/Creatinine Ratio 12.5 Glucose 98 Calcium 8.1 L Medical Necessity - Tobacco Use Smoking Status: Current every day smoker Assessment/Plan All Active Problems SBO (small bowel obstruction) (Acute) Abdominal pain (Acute) Pelvic abscess (Acute) 62-year-old female with ileus, UTI, diarrhea, vaginal discharge questionable fistula, pelvic abscess on CT, sigmoid diverticulitis vs. colitis 1. Ileus: resolved +BF, ok for clears. 2. Diverticulitis/colitis- continue IV abx 3. 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 pt is agreeable with plan. 4. Pelvic abscesses- continue IV abx Becca Hamilton M.D. Pager: [phone] [facility] [address] [place] [address], [facility], [address] [place] [address] Office: [phone]
[2018-06-01 08:45] VITALS: BP 125/69; PULSE 78; RESP 16; TEMP 36.8; O2SAT 95
[2018-06-01] MEDS: Ciprofloxacin 400 MG/200 ML BAG 200 MG IV ×2 (10:00→23:03)
--- NOTE | 2018-06-01 13:23 | NURSING ---
Notified patient that diet was advanced to low gastric stimulus and educational handout given regarding same. Pt states she will not be advancing yet due to the gushing that started again. She stated that she went t/o night and morning with no issues and within last few hours has started again.
[2018-06-01 14:45] VITALS: BP 141/68; PULSE 84; RESP 16; TEMP 37.3; O2SAT 97
--- NOTE | 2018-06-01 15:51 | PCM.TXEXTCAR ---
- Diet 06/01/18 13:14 Diet: No Gastric Stimulus/Low Residue Is pt able to select menu?: Yes - Routine Orders/Code Status Enema Type: Fleetz Enema Frequency: Daily PRN Suppository Type: Dulcolax 10mg Suppository Frequency: Daily PRN O2 Frequency: PRN Keep PO Greater than or Equal to (%): 92 Code Status: Full Code - Therapies Weight Bearing: Full weight bearing - Allergies/Procedures Done in Hospital Allergies/Adverse Reactions: Allergies Penicillins Allergy (Verified 05/30/18 16:49) BLISTERS IN MOUTH Procedures: None - Type of Care/Length of Stay Estimated LOS: Convalescent Care Less Than 30 days Type of Care Needed: Skilled Rehab Potential: Good Prognosis: Good - Additional Orders/Day of Discharge H&P will serve as current which was dated: 05/30/18 Day of Discharge: 06/01/18 - Dietary and Speech Recommendations Dietitian Recommendations/Changes: Rec adv diet as tolerated to regular, low residue. Ensure Enlive 120 mL 4x/day w/medpass when diet advanced. - Follow Up Care Primary Care Physician: Naya Harrison [STAFF PHYSICIAN] - 1 Week Please follow up with your Primary Care Physician in: 1-2 weeks
[2018-06-01 21:45] VITALS: BP 126/72; PULSE 97; RESP 16; RESP 18; TEMP 37.3; O2SAT 94
[2018-06-01] MEDS: 0.9% NaCl Peripheral Flush Adult/Peds IV (23:04)
[2018-06-02 03:45] VITALS: BP 141/76; PULSE 82; RESP 16; TEMP 36.8; O2SAT 94
[2018-06-02 06:25] LABS: Absolute Neutrophil Count 4.3 X10^3/uL (2.0-7.7); Basophil# 0.06 X10^3/uL; Basophil% 0.7 % (0-1); Differential Indicated SCAN CRITERIA MET; Eosinophil# 0.12 X10^3/uL; Eosinophils% 1.5 % (0-5); Hematocrit 34.5 % (37-47); Hemoglobin 11.1 g/dl (12.0-15.0); Lymphocyte % 35.1 % (19-41); Mean Corp Hgb Conc 32.2 g/gl (32-36); Mean Corpuscular Hgb 30.7 pg (27.0-32.0); Mean Corpuscular Volume 95.6 fL (81-99); Mean Platelet Vol. 11.2 fl (6.2-12.0); Monocyte# 0.87 X10^3/uL; Monocyte% 10.5 % (0-10); Neutrophil # 4.29 X10^3/uL (2.7-7.7); POSITIVE COUNT NO; POSITIVE DIFFERENTIAL NO; POSITIVE MORPHOLOGY YES; Platelet Count 276 K/mm3 (150-450); RBC Distribution Width CV 13.3 % (11.6-14.6); RBC Distribution Width SD 44.5 fl (35.1-43.9); Red Blood Count 3.61 M/mm3 (4.2-5.4); White Blood Count 8.3 K/mm3 (4.4-11.0)
[2018-06-02 06:36] LABS: Anion Gap 8 (5-15); BUN 5 mg/dL (7-18); BUN/Creat Ratio 8.4 RATIO (10-20); Calcium,Total 8.4 mg/dL (8.5-10.1); Chloride 109 mmol/L (98-107); Creatinine, Serum 0.59 mg/dL (0.55-1.02); EST Glomerular Filtration Rate 110 mL/min (>60); Est Glom Filt Rate - Afr Amer 133 mL/min (>60); Estimated Creatinine Clearance 94.92 ml/min; Glucose 97 mg/dL (74-106); Potassium 3.4 mmol/L (3.5-5.1); Sodium Level 143 mmol/L (136-145)
--- NOTE | 2018-06-02 08:52 | PCM.PN.SRG ---
Patient Problems: Active and Suspected Problems SBO (small bowel obstruction) (Acute) Abdominal pain (Acute) Pelvic abscess (Acute) Subjective: Patient tolerated clears denies any abdominal pain still having some drainage from her vaginal area when she has diarrhea. - Physical Exam General: Alert, Oriented x3, Cooperative, No apparent distress Abdomen: Soft, Non Tender - No peritoneal signs, Non-Distended Vital Signs Temp Pulse Resp BP Pulse Ox 98.3 F 82 16 141/76 H 94 06/02/18 03:45 06/02/18 03:45 06/02/18 03:45 06/02/18 03:45 06/02/18 03:45 Oxygen Delivery Method Room Air Weight: 198 lb 3.129 oz Body Mass Index (BMI) 31.9 Intake and Output for Last 24 Hours 05/31/18 06/01/18 06/02/18 23:59 23:59 23:59 Intake Total 2310 / 2310 2420 / 2420 617 / 617 Output Total 225 / 225 Balance 2085 / 2085 2420 / 2420 617 / 617 Microbiology Past 72 Hours 05/31/18 16:25 Enteric Bacteriology - Final Stool 05/31/18 16:25 Stool Lactoferrin - Final Stool Laboratory Tests Past 24 Hrs 06/02/18 06/02/18 05:55 05:55 WBC 8.3 RBC 3.61 L Hgb 11.1 L Hct 34.5 L MCV 95.6 MCH 30.7 MCHC 32.2 RDW 13.3 RDW Differential 44.5 H Plt Count 276 MPV 11.2 Immature Gran % (Auto) 0.200 Neut % (Auto) 52.0 Lymph % (Auto) 35.1 [place] % (Auto) 10.5 H Eos % (Auto) 1.5 Baso % (Auto) 0.7 Absolute Neuts (auto) 4.3 Absolute Lymphs (auto) 2.90 Total Counted Not Reportable Sodium 143 Potassium 3.4 L Chloride 109 H Carbon Dioxide 26.0 Anion Gap 8 BUN 5 L Creatinine 0.59 Estim Creat Clear Calc 94.92 Est GFR (MDRD) Af Amer 133 Est GFR (MDRD) Non-Af 110 BUN/Creatinine Ratio 8.4 L Glucose 97 Calcium 8.4 L Medical Necessity - Tobacco Use Smoking Status: Current every day smoker Assessment/Plan All Active Problems SBO (small bowel obstruction) (Acute) Abdominal pain (Acute) Pelvic abscess (Acute) 62-year-old female with ileus, UTI, diarrhea, vaginal discharge questionable fistula, pelvic abscess on CT, sigmoid diverticulitis vs. colitis 1. Ileus: resolved +BF, ok for full/some low fiber diet 2. Diverticulitis/colitis- continue IV abx will also give an additional 10 days of Cipro and Flagyl on discharge 3. 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 pt is agreeable with plan. Due to no bed being available at patient's preferred Hospital [facility] and unknown when transfer will happen patient is currently stable--okay to be DC'd home on oral antibiotics. Patient has a follow-up with Dr. Jacob on 06/08 at 10 AM, [id number] [facility] 3rd floor desk 3-1 4. Pelvic abscesses- continue IV abx-transition to PO Becca Hamilton M.D. Pager: [phone] [facility] [address] [place] [address], [facility], [address] [place] [address] Office: [phone]
--- NOTE | 2018-06-02 08:54 | PCM.DC.SUM ---
Discharge Date and Diagnosis Date of Admission: 05/30/18 Date of Discharge: 06/02/18 - Primary Discharge Diagnosis Active and Suspected Problems SBO (small bowel obstruction) (Acute) Abdominal pain (Acute) Pelvic abscess (Acute) Hospital Course and Treatment Imaging Results: Diagnostic Data Abdomen/Pelvis CT 05/30/18 17:11 IMPRESSION: Inflammatory process in the pelvis that appears to be related to the rectosigmoid and may be associated with 2 small abscesses on the right. See specifics above. Electronically Signed: Javed Chavez MD at 19:39 EDT , Service support , KUB X-Ray 05/31/18 05:55 IMPRESSION: Oral contrast is seen in the left hemicolon from the prior CT scan of the abdomen. Gas is seen throughout the colon. Mildly dilated central small bowel loops most likely representing ileus. Electronically Signed: Tal Vázquez MD at 8:54 EDT Tel [phone], Service support , Pelvis CT 05/31/18 08:36 IMPRESSION: Inflammatory changes involving the rectosigmoid colon with increased markings in the surrounding peritoneal fat and small lymph nodes. Findings suggestive of at least 2 fluid collections containing air suggestive of abscesses. Irregular thickening of the urinary bladder. Air is seen within the vagina. Electronically Signed: Tal Vázquez MD at 10:32 EDT Tel [phone], Service support , Laboratory Tests 05/30/18 05/30/18 05/30/18 17:25 17:25 17:55 WBC 7.3 RBC 4.10 L Hgb 12.4 Hct 38.9 MCV 94.9 MCH 30.2 MCHC 31.9 L RDW 13.6 RDW Differential 47.0 H Plt Count 307 MPV 11.4 Immature Gran % (Auto) 0.000 Neut % (Auto) 57.9 Lymph % (Auto) 29.8 [place] % (Auto) 11.3 H Eos % (Auto) 0.7 Baso % (Auto) 0.3 Absolute Neuts (auto) 4.2 Absolute Lymphs (auto) 2.17 Total Counted Not Reportable Sodium 139 Potassium 3.3 L Chloride 103 Carbon Dioxide 27.0 Anion Gap 9 BUN 20 H Creatinine 0.74 Estim Creat Clear Calc 75.68 Est GFR (MDRD) Af Amer 102 Est GFR (MDRD) Non-Af 84 BUN/Creatinine Ratio 26.9 H Glucose 100 Calcium 9.1 Total Bilirubin 0.40 Direct Bilirubin 0.14 AST 19 ALT 15 Alkaline Phosphatase 91 Total Protein 7.7 Albumin 3.3 Globulin 4.4 H Lipase 48 L Urine Color Straw Urine Clarity Cloudy Urine pH 6.5 Ur Specific [place] 1.005 Urine Protein 30 H Urine Glucose (UA) Normal Urine Ketones 15 H Urine Occult Blood 250 H Urine Nitrite Negative Urine Bilirubin Negative Urine Urobilinogen Normal Ur Leukocyte Esterase 500 H Urine RBC 25-50 SEEN Urine WBC >100 SEEN Ur Squamous Epith Cells 0-5 SEEN Urine Bacteria 3+ Urine Mucus 0 SEEN 05/31/18 05/31/18 06/01/18 06:45 06:45 06:18 WBC 7.2 6.5 RBC 3.62 L 3.53 L Hgb 11.0 L 10.7 L Hct 34.4 L 33.6 L MCV 95.0 95.2 MCH 30.4 30.3 MCHC 32.0 31.8 L RDW 13.5 13.6 RDW Differential 46.9 H 46.9 H Plt Count 263 278 MPV 10.8 11.1 Immature Gran % (Auto) 0.100 0.200 Neut % (Auto) 57.2 43.6 L Lymph % (Auto) 28.1 40.2 [place] % (Auto) 13.4 H 13.3 H Eos % (Auto) 1.1 2.1 Baso % (Auto) 0.1 0.6 Absolute Neuts (auto) 4.1 2.8 Absolute Lymphs (auto) 2.02 2.62 Total Counted Not Reportable Not Reportable Sodium 144 Potassium 3.3 L Chloride 108 H Carbon Dioxide 26.0 Anion Gap 10 BUN 12 Creatinine 0.57 Estim Creat Clear Calc 98.26 Est GFR (MDRD) Af Amer 140 Est GFR (MDRD) Non-Af 116 BUN/Creatinine Ratio 21.2 H Glucose 99 Calcium 8.2 L Total Bilirubin Direct Bilirubin AST ALT Alkaline Phosphatase Total Protein Albumin Globulin Lipase Urine Color Urine Clarity Urine pH Ur Specific [place] Urine Protein Urine Glucose (UA) Urine Ketones Urine Occult Blood Urine Nitrite Urine Bilirubin Urine Urobilinogen Ur Leukocyte Esterase Urine RBC Urine WBC Ur Squamous Epith Cells Urine Bacteria Urine Mucus 06/01/18 06/02/18 06/02/18 06:18 05:55 05:55 WBC 8.3 RBC 3.61 L Hgb 11.1 L Hct 34.5 L MCV 95.6 MCH 30.7 MCHC 32.2 RDW 13.3 RDW Differential 44.5 H Plt Count 276 MPV 11.2 Immature Gran % (Auto) 0.200 Neut % (Auto) 52.0 Lymph % (Auto) 35.1 [place] % (Auto) 10.5 H Eos % (Auto) 1.5 Baso % (Auto) 0.7 Absolute Neuts (auto) 4.3 Absolute Lymphs (auto) 2.90 Total Counted Not Reportable Sodium 144 143 Potassium 3.6 3.4 L Chloride 111 H 109 H Carbon Dioxide 25.0 26.0 Anion Gap 8 8 BUN 7 5 L Creatinine 0.56 0.59 Estim Creat Clear Calc 100.01 94.92 Est GFR (MDRD) Af Amer 142 133 Est GFR (MDRD) Non-Af 117 110 BUN/Creatinine Ratio 12.5 8.4 L Glucose 98 97 Calcium 8.1 L 8.4 L Total Bilirubin Direct Bilirubin AST ALT Alkaline Phosphatase Total Protein Albumin Globulin Lipase Urine Color Urine Clarity Urine pH Ur Specific [place] Urine Protein Urine Glucose (UA) Urine Ketones Urine Occult Blood Urine Nitrite Urine Bilirubin Urine Urobilinogen Ur Leukocyte Esterase Urine RBC Urine WBC Ur Squamous Epith Cells Urine Bacteria Urine Mucus general surgery Operations: None Procedures: None Summary of Care Provided: The patient is a 62 year old F who has not seen a primary care doctor in the past 15 years. She was admitted by the ED on 05/30/2018 with complaint of abdominal pain to about 4 days duration. Pain was generalized, episodic and was progressively getting worse with associated nausea and diarrhea. She also had decreased appetite. She also complained of chronic vaginal discharge and had been going on for about a year and was initially brownish productive and greenish. She had no assisted fever or chills. She denied having any history of colonoscopy or diverticulitis and had multiple previous surgeries and hysterectomy and appendectomy and then laparoscopic cholecystectomy in the past. CT abdomen and pelvis done showed 2 pelvic abscesses and suspicion for IBS as well. She was having diarrhea and passing gas and so the findings were not consistent with small bowel obstruction. CT with Gastrografin was done which shows some thickening of the rectal sigmoid colon, abscesses with air-fluid levels seen as documented by CT. Urine culture showed mixed gram-positive and gram-negative organisms. Patient was admitted and started on IV ciprofloxacin and IV Flagyl for pelvic abscesses and diverticulitis; general surgery and gynecology were consulted. General surgery reviewed patient and thought she had a cold for cycle fistula with possible colovaginal fistula as well. General surgery discussed with urology and decision was made to transfer patient to a tertiary center for surgery as needed. Patient remained stable and tolerated clear liquid diet and was advanced to full liquid diet. Patient preferred to be transferred to [facility]; however even though she was accepted by Dr. Fallon, a colorectal surgeon at [facility], there was a long delay for bed as a transfer line cannot tell us and anticipated time of getting a bed. Patient remained stable, and vaginal discharge improved significantly. Per discussion with general surgery, an appointment was obtained at [facility] with Dr Jacob (colorectal surgeon) on 06/08/18 @ 10am- [facility] [address] [facility] 3rd Floor Desk 3-1. Patient was seen and examined prior to discharge. She had no complaints and felt well. Vaginal discharge had resolved. She tolerated clear liquid diet overnight. She denied any fever or chills, cough or chest pain, abdominal pain, diarrhea vomiting. Review of systems is otherwise negative. On examination: Vitals: Vital Signs Height 5 ft 6 in Weight: 198 lb 3.129 oz Weight in Pounds 198.2 lbs Pulse Ox 94 Temperature 98.3 F Pulse Rate 82 Respiratory Rate 16 Blood Pressure 141/76 Blood Pressure Position Semi-Fowlers General: Alert, Oriented x3, Cooperative, No apparent distress HEENT: Atraumatic, PERRLA, EOMI, Normocephalic Oral: Moist Mucosa Neck: Supple, No JVD, Negative Carotid Bruits Lungs: Clear to auscultation, Normal air movement Cardiovascular: Regular rate, Regular Rhythm, Normal S1, Normal S2, No murmurs Abdomen: Bowel Sounds Present, Soft, Non-Distended, No Hepato-splenomegaly, - - mild suprapubic tenderness Extremities: No clubbing, No cyanosis, No edema, Capillary Refill Less than 3 Seconds Skin: No rashes, No breakdown Musculoskeletal: No Tenderness to Palpation of Joints or Extremities, No Muscle Wasting Lymphatic: No Cervical, Supraclavicular, or Inguinal Adenopathy Neurological: Cranial nerves II-XII grossly intact Psych/Mental Status: Normal Affect, Appropriate, Alert and oriented to time, place, person, mood and affect [] Plan as documented above. A 10 day course of PO ciprofloxacin and flagyl given. She is to be on a full liquid diet with protein drinks and low fibre foods as well. Patient given copies of her CT abdomen and pelvis disks to take to her appointment at [facility]. Discharge Diet: - - full liquid diet with protein drinks and some low fibre foods Weight Bearing Status: Weight bearing as tolerated Call your doctor if you observe: - - abdominal pain; worsening vaginal discharge Home Medications: Medications to take at Discharge Ibuprofen 400 - 600 mg PO PRN PRN 05/30/18 Ciprofloxacin [Cipro] 500 mg PO BID #20 tab 06/02/18 Metronidazole [Flagyl] 500 mg PO Q8H #30 tab 06/02/18 Following Prescrptions Were Given to Patient: Metronidazole [Flagyl] 500 mg PO Q8H #30 tab Ciprofloxacin [Cipro] 500 mg PO BID #20 tab Please follow up with your Primary Care Physician in: 1-2 weeks Additional Instructions: referred to Dr Jacob- Coloregcal surgeon at [facility] Main [place]: 06/08/18 @ 10am Disposition: Home Minutes spent on discharge:: 40 Patient Condition:: Stable Medical Necessity - Tobacco Use Smoking Status: Current every day smoker Meaningful Use Info Meaningful Use Diagnoses (Choose all that apply): None applicable Code Visit Inpatient E&M: 55907 [facility] Hosp
--- NOTE | 2018-06-02 08:56 | PCM.DC.GS ---
Discharge Diet: - - Full liquids with protein drinks and okay for some low fiber foods Discharge Activity: Return to Normal Activity Call your doctor if your incision/area has: Increased Pain/ Swelling Call your doctor if you observe: Fever of 101 or Higher Additional Instructions: Follow-up with Dr. Jacob on June 08 at 10 AM [id number] [facility] 3rd floor- Desk [address] [place] [address] Bring disk with imaging & reports, take photo ID, insurance card, med list Allergies/Adverse Reactions: Allergies Penicillins Allergy (Verified 05/30/18 16:49) BLISTERS IN MOUTH Medications to take at Discharge Ibuprofen 400 - 600 mg PO PRN PRN 05/30/18 Ciprofloxacin [Cipro] 500 mg PO BID #20 tab 06/02/18 Metronidazole [Flagyl] 500 mg PO Q8H #30 tab 06/02/18 Please follow up with your Primary Care Physician in: 1-2 weeks Test Results: Test results from this visit will be discussed in further detail at your follow-up appointment, if applicable. When: See additional instructions for f/u info for Dr. Jacob Proposed Discharge Date: 06/02/18
[2018-06-02 10:32] VITALS: BP 144/77; PULSE 84; RESP 18; TEMP 36.9; O2SAT 98
== END 2018-06-02 11:22 | disposition home or self-care (01) | DRG 758 ==
LOC: ED 17:59 → MS2 21:23
PROVIDERS: Admitting Provider Family Medicine; Emergency Provider Emergency Medicine; Visit Provider Student in an Organized Health Care Education/Training Program
DX: N73.9 Female pelvic inflammatory disease, unspecified (principal); K56.7 Ileus, unspecified; F17.200 Nicotine dependence, unspecified, uncomplicated; E87.6 Hypokalemia; Z90.710 Acquired absence of both cervix and uterus; Z90.49 Acquired absence of other specified parts of digestive tract
CPT/HCPCS: 36415; 72193; 74018; 74177; 80048; 80076; 81001; 83630; 83690; 85025; 87077; 87086; 87088; 87186; 87506; 97802; 99283; 99406; J7030; Q9967; A4216; J0744; J2405